=== PATIENT | female | born 1970 | race Caucasian/White ===

== ENCOUNTER 2024-06-15 11:17 | Observation (INO) ==
[~2024-06-15 11:17] MED LIST: Lidocaine 2% PF 5 ML VIAL ONE; Metoclopramide 5 MG/ML VIAL (10 mg) IV PRN; Midazolam 2 mg/2 ml VIAL 1 mg/ml 2 ml VIAL (2 mg) ONE; NS 0.45% 1000 ml BAG 1,000 ML IV SCH; Naloxone 0.4 mg VIAL 0.4 mg/ml 1 ml VIAL IV PRN; Ondansetron 4 mg VIAL 2 MG/ML 2 ml VIAL IV PRN; fentaNYL 100 mcg/2 ml 50 MCG/ML VIAL IV PRN; fentaNYL 100 mcg/2 ml 50 MCG/ML VIAL ONE
[2024-06-15] MEDS ORDERED: Chlorhexidine MOUTHWASH 0.12% 15 ML UDC ONE (11:34)
[2024-06-15] MEDS ORDERED: ceFAZolin 2 GM PREMIX 2 GM/50 ML BAG ONE (11:38)
[2024-06-15] MEDS ORDERED: Lidocaine 1% w EPI 1:100,000 MDV 20 ML VIAL ONE (11:39)
[2024-06-15] MEDS ORDERED: Thrombin 5,000 UNITS(BOVINE) for Ultrasound Guided Pseudoaneursym ONE (11:39)
[2024-06-15] MEDS ORDERED: ceFAZolin VIAL VIAL ONE (11:39)
[2024-06-15 12:27] LABS: Rapid COVID-19 Molecular Undetected (Undetected)
[2024-06-15] MEDS ORDERED: Rocuronium 50 mg VIAL 10 mg/ml 5 ml VIAL (50 mg) ONE ×2 (12:54→14:18)
[2024-06-15] MEDS ORDERED: Ondansetron 4 mg VIAL 2 MG/ML 2 ml VIAL ONE (12:54)
[2024-06-15] MEDS ORDERED: Propofol 10 MG/ML 20 ML BTL ONE (12:54)
[2024-06-15] MEDS ORDERED: Dexamethasone IV 4 MG/ML VIAL 1 ml VIAL ONE (12:54)
[2024-06-15] MEDS ORDERED: Midazolam 2 mg/2 ml VIAL 1 mg/ml 2 ml VIAL (2 mg) ONE (13:05)
[2024-06-15] MEDS ORDERED: Esmolol 10 MG/ML 10 ML (100 mg) IV ONE (13:18)
[2024-06-15] MEDS ORDERED: Phenylephrine IV 10 MG/ML 1 ml VIAL ONE (13:29)
[2024-06-15] MEDS ORDERED: fentaNYL 100 mcg/2 ml 50 MCG/ML VIAL ONE (14:19)
[2024-06-15] MEDS ORDERED: Morphine 2 MG/ML SYRINGE IV PRN (14:50)
[2024-06-15] MEDS ORDERED: Magnesium Hydroxide LIQ 30 ML UDC PO PRN (14:50)
[2024-06-15] MEDS ORDERED: Dextran 70/Hypromellose Tears Eye Drops 15 ml BTL (for Artificials Tears) BOTH EYES PRN (14:50)
[2024-06-15] MEDS ORDERED: Calcium Carb (TUMS) 500 mg CHEW TAB PO PRN (14:50)
[2024-06-15] MEDS ORDERED: Phenol 1.4% Throat Spray BTL MT PRN (14:50)
[2024-06-15] MEDS ORDERED: Senna TAB 8.6 mg TAB PO PRN (14:50)
[2024-06-15] MEDS ORDERED: Benzocaine/Menthol LOZ MT PRN (14:50)
[2024-06-15] MEDS ORDERED: Ondansetron 4 mg VIAL 2 MG/ML 2 ml VIAL IV PRN (14:50)
[2024-06-15] MEDS: Scopolamine 1 mg/72hr PATCH TRANSDERM ONE (16:37)
[2024-06-15] MEDS: Lactated Ringers 1000 ml BAG 1,000 ML IV SCH ×2 (16:37→17:08)
[2024-06-15] MEDS: Buffered Lidocaine 1% SYRIN 1 ml INTRADERM ONE (16:37)
[2024-06-15] MEDS: Acetaminophen IV 1 GM/100ML 1,000 MG/100 ML BAG IV ONE (16:37)
[2024-06-15] MEDS ORDERED: hydrALAZINE 20 mg/ml 1 ML Vial IV IV SLOW PU PRN (17:50)
[2024-06-16] MEDS ORDERED: LEVONORGESTREL ETH ESTRAD PO SCH (09:00)
[2024-06-16 10:44] VITALS: BP 153/87
[2024-06-16] MEDS: Influenza Vaccine *TRI* 2024-25* 0.5 ML SYRINGE IM ONE (11:37)
[2024-06-16] MEDS: COVID VAC 24-25 (12+) (Moderna) Syringe 0.5 mL IM ONE (11:42)
== END 2024-06-16 11:55 | disposition home or self-care (01) ==
LOC: SSU 11:17 → OR 11:17
PROVIDERS: ADMIT Neurological Surgery; ATTEND Neurological Surgery
PROC: O.NEPCD (2024-06-15 13:45)